=== PATIENT | female | born 1970 | race Caucasian/White ===

== ENCOUNTER → 2018-05-11 08:41 | Outpatient (CLI) | payer OTHER, SELFPAY ==
[2018-05-11 08:53] LABS: Basophils % 0.5 % (0.1-2.0); Eosinophils % 0.9 % (0.1-12.0); Hematocrit 40.2 % (37.0-47.0); Hemoglobin 13.1 g/dL (12.2-16.2); Lymphocytes # 1.3 K/mm3 (0.7-4.5); Mean Corpuscular HGB Conc 32.5 g/dL (31.8-35.4); Mean Corpuscular Hemoglobin 30.8 pg (27.0-31.2); Mean Corpuscular Volume 94.7 fl (81-99); Mean Platelet Volume 7.6 fl (7.4-10.4); Monocytes # 0.2 K/mm3 (0.1-1.0); Neutrophils # 1.2 K/mm3 (1.8-7.8); Neutrophils % 42.6 % (37.0-80.0); Platelet Count 227 K/mm3 (142-424); Red Blood Count 4.25 M/mm3 (4.20-5.40); Red Cell Distribution Width 12.8 % (11.5-17.5); White Blood Count 2.8 K/mm3 (4.8-10.8)
[2018-05-11 11:19] LABS: Alanine Aminotransferase 29 U/L (12-78); Albumin Level 3.4 gm/dL (3.4-5.0); Alkaline Phosphatase 96 U/L (46-116); Anion Gap 10.7 mEq/L (5-15); Aspartate Amino Transferase 19 U/L (15-37); Bilirubin,Total 0.6 mg/dL (0.2-1.0); Blood Urea Nitrogen 13 mg/dL (7-18); Calcium 8.6 mg/dL (8.5-10.1); Carbon Dioxide 31 mmol/L (21.0-32.0); Chloride 105 mmol/L (98-107); Chol/HDL Ratio 3.1 (1-3.5); Cholesterol 173 mg/dL (140-200); Creatinine,Serum 0.77 mg/dL (0.55-1.02); Estimated Glomerular Filt Rate 80 ml/min (>60); GFR (African American) 96 ML/MIN (>60); Globulin 3.3 gm/dl (1.3-3.2); Glucose 93 mg/dL (74-106); HDL Cholesterol 55 mg/dL (29-89); LDL Cholesterol 99 mg/dL (0-130); Potassium 4.7 mmoL/L (3.5-5.1); Sodium 142 mmol/L (136-145); Thyroid Stimulating Hormone 2.41 uIU/ml (0.358-3.740); Total Protein,Serum 6.7 gm/dL (6.4-8.2); Triglycerides 96 mg/dL (30-200); Triiodothryronine (T3) Uptake 34 % (31-39); VLDL Cholesterol 19 mg/dL (0-40)
[2018-05-13 11:17] LABS: Vitamin B12 498 pg/mL (232-1245)
[2018-05-14 09:58] LABS: Antinuclear Antibodies, IFA Positive (.)
== END ==
PROVIDERS: Visit Provider Internal Medicine Adolescent Medicine
DX: R10.84 Generalized abdominal pain (principal); M25.50 Pain in unspecified joint; Z87.19 Personal history of other diseases of the digestive system
CPT/HCPCS: 36415; 80053; 80061; 82607; 84436; 84443; 84479; 85025; 86038

== ENCOUNTER → 2018-10-11 11:45 | Outpatient (CLI) | payer OTHER, SELFPAY ==
--- NOTE | 2018-10-11 12:13 | XR_ITS ---
EXAM: XR thoracic spine 3V HISTORY: ITS.REASON: THORACIC PAIN Comparison: None FINDINGS: Normal alignment. There are mild degenerative changes lower thoracic spine. All pedicles are intact. There is no paraspinal mass. IMPRESSION: Mild degenerative change lower thoracic spine no other abnormality noted
[2018-10-11 12:36] LABS: Basophils % 0.6 % (0.1-2.0); Eosinophils % 0.4 % (0.1-12.0); Hematocrit 39.8 % (37.0-47.0); Hemoglobin 13.4 g/dL (12.2-16.2); Lymphocytes # 1.3 K/mm3 (0.7-4.5); Lymphocytes % 19.9 % (10-50); Mean Corpuscular HGB Conc 33.7 g/dL (31.8-35.4); Mean Corpuscular Hemoglobin 30.8 pg (27.0-31.2); Mean Corpuscular Volume 91.6 fl (81-99); Mean Platelet Volume 7.1 fl (7.4-10.4); Monocytes # 0.2 K/mm3 (0.1-1.0); Monocytes % 3.5 % (1.7-9.3); Neutrophils # 5.1 K/mm3 (1.8-7.8); Neutrophils % 75.5 % (37.0-80.0); Platelet Count 351 K/mm3 (142-424); Red Blood Count 4.35 M/mm3 (4.20-5.40); Red Cell Distribution Width 13.4 % (11.5-17.5); White Blood Count 6.7 K/mm3 (4.8-10.8)
[2018-10-11 13:48] LABS: Alanine Aminotransferase 32 U/L (12-78); Alkaline Phosphatase 107 U/L (46-116); Anion Gap 12.3 mEq/L (5-15); Aspartate Amino Transferase 25 U/L (15-37); Bilirubin,Total 0.5 mg/dL (0.2-1.0); Blood Urea Nitrogen 13 mg/dL (7-18); Calcium 9.3 mg/dL (8.5-10.1); Carbon Dioxide 28 mmol/L (21.0-32.0); Chloride 104 mmol/L (98-107); Creatinine,Serum 0.78 mg/dL (0.55-1.02); Estimated Glomerular Filt Rate 78 ml/min (>60); Free Thyroxine Index 1.9 ug/dL (5.93-13.13); GFR (African American) 95 ML/MIN (>60); Globulin 3.9 gm/dl (1.3-3.2); Glucose 94 mg/dL (74-106); Magnesium 1.8 mg/dL (1.4-2.2); Potassium 4.3 mmoL/L (3.5-5.1); Sodium 140 mmol/L (136-145); T4 (Thyroxine) 6.6 ug/dl (4.7-13.3); Thyroid Stimulating Hormone 1.78 uIU/ml (0.358-3.740); Total Protein,Serum 7.9 gm/dL (6.4-8.2); Triiodothryronine (T3) Uptake 29 % (31-39)
[2018-10-12 19:09] LABS: Vitamin B12 445 pg/mL (232-1245)
== END ==
PROVIDERS: PCP Internal Medicine Adolescent Medicine; Visit Provider Internal Medicine Adolescent Medicine
DX: R25.2 Cramp and spasm (principal); M54.6 Pain in thoracic spine
CPT/HCPCS: 36415; 72072; 80053; 82607; 82652; 83735; 84436; 84443; 84479; 85025

== ENCOUNTER 2018-12-20 08:30 | Outpatient (RCR) | payer OTHER, SELFPAY ==
--- NOTE | 2018-10-29 10:23 | HMH.PTOPEV ---
PT Outpatient Evaluation Rehab PT Outpatient Evaluation Start: 10/29/18 09:54 Freq: Status: Active Protocol: Document 10/29/18 09:54 JEFFERYHAN (Rec: 10/29/18 10:23 DORINDA [id number]) Electronically Signed By Mason Gross, PT 10/29/18 09:54 Outpatient Therapy Subjective History Subjective History Patient is a 48 year old female presenting to outpatient PT with reports of L sided interscapular pain of insidious onset starting approximatley 1 month ago. No specific mechanism of injury to report. 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 Signs and symptoms consistent with poor postural awareness. Pt reports symptoms in mid thoracic spine as heavy. She report previously having relief from chiropracitc care. Comorbidities inclue Hx of OA. Pt gives no report of previous cardiovascular issues . Chief Complaint Pain,Stiff Symptom Type Dull Symptoms Relieved By Heat Symptoms Aggravated By Physical Activity Prior Functional Limitations None Current Functional Limitations Reaching,Lifting,Housework, Desk Work/Reading Level of pain today (0-10) 3 Pain scale - at its best (0-10) 1 Pain scale - at its worst (0-10) 6 Cervical Eval Posture Head/C-Spine Posture Sitting Position Neutral Position Flexibility Deficits Upper Trapezius Muscle Length (R) Moderate Tightness,(L) Moderate Tightness Pectoralis Major Muscle Length (R) Moderate Tightness,(L) Moderate Tightness Pectoralis Minor Muscle Length (R) Moderate Tightness,(L) Moderate Tightness Passive Joint Mobility Cervical PIVM Dec: R C2/3 L C2/3 R C3/4 L C3/4 R C4/5 L C4/5 R C5/6 L C5/6 R C6/7 L C6/7
== END 2018-12-20 08:35 | disposition home or self-care (01) ==
LOC: PT 08:30
PROVIDERS: Visit Provider Internal Medicine Adolescent Medicine
DX: M54.6 Pain in thoracic spine (principal); R25.2 Cramp and spasm
CPT/HCPCS: 97010; 97014; 97110; 97140; 97163; G0283

== ENCOUNTER → 2019-02-03 14:17 | Outpatient (CLI) | payer OTHER, SELFPAY ==
--- NOTE | 2019-02-03 14:21 | XR_ITS ---
XR ankle LT min 3V HISTORY: ITS.REASON: ACUTE LT ANKLE PAIN ORDERING PHYSICIAN: Venkat Gu MD PATIENT AGE: 49 years Comparison: None FINDINGS: No fracture or dislocation. No lytic or blastic change. There is normal mineralization.. The joint spaces are well-preserved. No significant degenerative/arthritic changes. No erosive changes evident. IMPRESSION: Negative ankle, no acute finding
== END ==
PROVIDERS: PCP Internal Medicine Adolescent Medicine; Visit Provider Internal Medicine Adolescent Medicine
DX: M25.572 Pain in left ankle and joints of left foot (principal)
CPT/HCPCS: 73610

== ENCOUNTER 2019-03-26 10:30 | Outpatient (RCR) | payer OTHER, SELFPAY ==
--- NOTE | 2019-02-06 11:44 | HMH.PTOPEV ---
PT Outpatient Evaluation Rehab PT Outpatient Evaluation Start: 02/06/19 11:25 Freq: Status: Active Protocol: Document 02/06/19 11:25 DORINDA (Rec: 02/06/19 11:43 DORINDA [id number]) Electronically Signed By Masno Gross, PT 02/06/19 11:25 Outpatient Therapy Subjective History Subjective History Pt is a 49 year old female presenting to outpatient PT with reports of L sided cervical spine pain with LUE radicular symptoms starting approximately 1 week ago. Pain is insidious in nature. Pt reports hx of chronic thoracic pain resolved with PT . Comorbidities include hx of hysterectomy. Chief Complaint Pain,Paresthesia Symptom Type Ache,Sharp,Numbness,Tingling Symptoms Relieved By Rest/Positioning Symptoms Aggravated By Physical Activity,Lifting Prior Functional Limitations None Current Functional Limitations Reaching,Lifting,Housework, Recreation Activity Symptom Description Intermittent Level of pain today (0-10) 1 Pain scale - at its best (0-10) 0 Pain scale - at its worst (0-10) 9 Cervical Eval Palpation Cervical Muscles L CT Junction,L Upper Trapezius,L Thoracic Paraspinals Flexibility Deficits Upper Trapezius Muscle Length (R) Moderate Tightness,(L) Moderate Tightness Levaetor Scapulae Muscle Length (R) Moderate Tightness,(L) Moderate Tightness Scalene Group Muscle Length (R) Moderate Tightness,(L) Moderate Tightness Pectoralis Major Muscle Length (R) Moderate Tightness,(L) Moderate Tightness Pectoralis Minor Muscle Length (R) Moderate Tightness,(L) Moderate Tightness Passive Joint Mobility Cervical PIVM WNL: R OA L OA R AA L AA R C2/3 L C2/3 R C3/4 L C3/4 R C4/5 L C4/5 R C5/6 L C5/6 R C6/7 L C6/7 R C7/T1
--- NOTE | 2019-03-20 17:40 | HMH.RHREAS ---
Rehab Reassessment Rehab OP Re-assessment Start: 03/20/19 17:09 Freq: Status: Active Protocol: Document 03/20/19 17:10 DORINDA (Rec: 03/20/19 17:39 DORINDA [id number]) Electronically Signed By Mason Gross, PT 03/20/19 17:10 Rehab Re-assessment Subjective Subjective Pt reports 30-40% improvement since start of care. Objective Objective Notes AROM: WFL MMT: WFL Neuro: DTR's WFL, Pt continues to reports intermittent radicular symptoms to L anterior elbow. Special tests: + spurlings. Assessment Progress Assessment Slower Than Expected Assessment Notes Patient is showing some improvements, but progressing slowly. She continues to have intermittent exacerbations with increased activity levels . PT educated to allow some lifestyle modification during this period. Her symptoms continue to result in functional limtations with all houshold, driving and work related activites. She would benefit from continuing skilled PT services. Patient goals met STG's Goals Not Met LTG's Revised Goals NA Plan Plan Continue with POC. Frequency of Therapy 2x/week Duration of therapy 4 weeks Time and Billing Re-Eval Time 15 Re-Eval Billing Units 1 PHYSICIAN CERTIFICATION: I certify the specified therapy services for Leroy Allen are required, authorized, and reviewed every 30 days.
== END 2019-03-26 10:35 | disposition home or self-care (01) ==
LOC: PT 10:30
PROVIDERS: PCP Internal Medicine Adolescent Medicine; Visit Provider Internal Medicine Adolescent Medicine
DX: M54.12 Radiculopathy, cervical region (principal); M12.812 Other specific arthropathies, not elsewhere classified, left shoulder
CPT/HCPCS: 97010; 97012; 97014; 97110; 97140; 97163; 97164; G0283

== ENCOUNTER → 2019-05-15 13:47 | Outpatient (CLI) | payer OTHER, SELFPAY ==
--- NOTE | 2019-05-15 13:49 | MR_ITS ---
PROCEDURE: MR SHOULDER LT WO CON CLINICAL INDICATION: ROTATOR CUFF ARTHROPATHY Left shoulder pain with limited range of motion COMPARISON: No exams were available for comparison TECHNIQUE: Routine multiplanar multi echo sequences are performed without gadolinium enhancement. FINDINGS: There are mild hypertrophic changes of the acromioclavicular joint with some edematous changes at the AC joint.. There is subacromial stenosis with mild impingement upon the supraspinatus tendon. No evidence rotator cuff tear. There is slight increased T2 signal of the supraspinatus tendon distally consistent with tendinopathy/tendinosis. The infraspinatus tendon, subscapularis tendon, teres minor tendons are intact. No labral tear apparent. Bicipital tendon is in place. There is some minimal subarticular cystic change of the humeral head. IMPRESSION: Acromioclavicular arthropathy with hypertrophy and mild impingement upon the supraspinatus tendon with tendinopathy/tendinosis of the supraspinatus tendon. Mild degenerative changes of the humeral head. No evidence of rotator cuff tear Dictated by: Caden Oneil MD 05/16/2019 09:02 Electronically signed by Caden Oneil MD in [place] 05/16/2019 09:02
== END ==
PROVIDERS: PCP Internal Medicine Adolescent Medicine; Visit Provider Internal Medicine Adolescent Medicine
DX: M12.812 Other specific arthropathies, not elsewhere classified, left shoulder (principal)
CPT/HCPCS: 73221

== ENCOUNTER → 2019-06-12 08:30 | Outpatient (CLI) | payer OTHER, SELFPAY ==
--- NOTE | 2019-06-12 08:40 | XR_ITS ---
PROCEDURE: XR SHOULDER LT MIN 2V CLINICAL INDICATION: left shoulder pain COMPARISON: MR SHOULDER LT WO CON from 05/15/2019 FINDINGS: The clavicle is intact. There is minor spurring of the AC joint superiorly. The humeral head and glenoid appear normal and there no soft tissue calcifications. IMPRESSION: Minor degenerate spurring of the AC joint superiorly otherwise negative left shoulder Dictated by: Dr. Clifton Carter MD 06/12/2019 09:[address] Clifton Carter MD in [place] 06/12/2019 09:52
== END ==
PROVIDERS: PCP Internal Medicine Adolescent Medicine; Visit Provider Orthopaedic Surgery
DX: M25.512 Pain in left shoulder (principal)
CPT/HCPCS: 73030

== ENCOUNTER → 2019-07-28 14:52 | Outpatient (CLI) | payer OTHER, SELFPAY ==
--- NOTE | 2019-07-28 14:58 | US_ITS ---
PROCEDURE: US BREAST RT COMPLETE CLINICAL INDICATION: CELLULITIS OF RT BREAST COMPARISON: No exams were available for comparison FINDINGS: There is a small subcutaneous area of decreased echogenicity in the right breast at 3 o'clock measuring 5 mm by 8 mm. This may represent an area of inflammation. No other significant anomalies are evident. IMPRESSION: Small hypoechoic area in the 3 o'clock region of the right breast which is subcutaneous and may represent a small area of inflammation/infection Dictated by: Caden Oneil MD 08/05/2019 15:33 Electronically signed by Caden Oneil MD in [place] 08/05/2019 15:33
== END ==
PROVIDERS: PCP Internal Medicine Adolescent Medicine; Visit Provider Nurse Practitioner Family
DX: N61.0 Mastitis without abscess (principal)
CPT/HCPCS: 76641

== ENCOUNTER 2019-08-19 15:00 | Outpatient (RCR) | payer OTHER, SELFPAY ==
--- NOTE | 2019-06-27 10:06 | HMH.OTOPEV ---
OT Inpatient Evaluation Rehab OT Outpatient Eval Start: 06/27/19 09:39 Freq: Status: Active Protocol: Document 06/27/19 09:40 TFRY (Rec: 06/27/19 10:06 TFRY [id number]) Electronically Signed By Jesi West OT 06/27/19 09:40 Outpatient Therapy Subjective History Subjective History This is a 49 year old right handed female referred to occupational therapy for left shoulder rotator cuff tendinopathy and bicep tendiopathy. Patient reports that she has had pain in her shoulder for months. Reports that she had injections prior to . She reports initially that had relief but then pain returned. Chief Complaint Pain Symptom Type Sharp,Stabbing Symptoms Relieved By Rest/Positioning,Prescription Meds Symptoms Aggravated By Physical Activity Prior Functional Limitations None Current Functional Limitations Reaching,Lifting,Housework, Dressing,Sleeping Symptom Description Constant but Variable Level of pain today (0-10) 5 Pain scale - at its best (0-10) 0 Pain scale - at its worst (0-10) 10 Shoulder/Elbow Eval Shoulder Objective Measurements Palpation Tenderness tenderness shoulder exam standard left tenderness over the bicipital tendon left shoulder exam standard Shoulder Palpation Findings Tenderness Shoulder ROM Left Shoulder ROM Limitations Pain Shoulder Abduction Active Range of WFL Motion (degrees) Shoulder Abduction Passive Range of WFL Motion (degrees) Shoulder Flexion Active Range of Motion WFL (degrees) Query Text: Shoulder Flexion Passive Range of Motion WFL (degrees) Shoulder External Rotation Active Range WFL of Motion (degrees) Shoulder External Rotation Passive Range WFL of Motion (degrees) Shoulder Internal Rotation Active Range WFL of Motion (degrees) Shoulder Internal Rotation Passive Range WFL of Motion (degrees) Shoulder Extension Active Range of WFL Motion (degrees) Shoulder Extension Passive Range of WFL Motion (degrees) pain with active ROM shoulder exam left standard pain with passive ROM shoulder exam left standard full ROM shoulder exam standard left Shoulder MMT Shoulder Abduction Strength Grade 4- Good-
--- NOTE | 2019-07-29 10:41 | HMH.RHREAS ---
Rehab Reassessment Rehab OP Re-assessment Start: 07/29/19 09:57 Freq: Status: Active Protocol: Document 07/29/19 09:57 RMRANULFOHALL (Rec: 07/29/19 10:41 RMARSHALL [id number]) Electronically Signed By Kelsey Segura OT 07/29/19 09:57 Rehab Re-assessment Subjective Subjective I am still having pain and its moving down my arm. Objective Objective Notes Pt continues to be seen twice a week in order to address all left shoulder deficits. Each time patient engages in left shoulder AROM/AAROM/ Strengthening exercises. Pt also receives modalities such as e-stim and ionto to decrease pain/inflammation at the left shoulder. Assessment Progress Assessment Slower Than Expected Assessment Notes Pt is continuing to have significant pain in the left shoulder that is now referring down into the bicep area. Pt also demonstrates with limited range of motion in internal rotation due to pain. Minimal improvement has been made. Therapist informed patient to schedule another appointment with ortho in order to be re-evaluated by therapist. Current AROM/MMT L shoulder Flex: 160 degrees, 4 Abd: 160 degrees, 4- ER: 90 degrees, 4- IR: 50 degrees, 3 Pt reports minimal pain with flex, abd, and ER. However pt has significant pain when trying to move arm in interal rotation. 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 Plan Plan Continue with OT plan of care. Frequency of T
== END 2019-08-19 15:05 | disposition home or self-care (01) ==
LOC: OT 15:00
PROVIDERS: PCP Internal Medicine Adolescent Medicine; Visit Provider Orthopaedic Surgery
DX: M75.52 Bursitis of left shoulder (principal); M75.42 Impingement syndrome of left shoulder; M75.22 Bicipital tendinitis, left shoulder; M67.912 Unspecified disorder of synovium and tendon, left shoulder
CPT/HCPCS: 97014; 97033; 97110; 97164; G0283

== ENCOUNTER → 2019-10-13 11:04 | Outpatient (CLI) | payer OTHER, SELFPAY ==
[2019-10-13 11:36] LABS: Basophils % 0.6 % (0.1-2.0); Eosinophils # 0.1 K/mm3 (0.0-0.4); Eosinophils % 1.4 % (0.1-12.0); Hematocrit 39.4 % (37.0-47.0); Lymphocytes # 1.4 K/mm3 (0.7-4.5); Lymphocytes % 22.7 % (10-50); Mean Corpuscular HGB Conc 33.1 g/dL (31.8-35.4); Mean Corpuscular Hemoglobin 30.8 pg (27.0-31.2); Mean Corpuscular Volume 93.2 fl (81-99); Mean Platelet Volume 7.8 fl (7.4-10.4); Monocytes # 0.2 K/mm3 (0.1-1.0); Monocytes % 3.9 % (1.7-9.3); Neutrophils # 4.5 K/mm3 (1.8-7.8); Neutrophils % 71.3 % (37.0-80.0); Platelet Count 265 K/mm3 (142-424); Red Blood Count 4.23 M/mm3 (4.20-5.40); Red Cell Distribution Width 12.8 % (11.5-17.5); White Blood Count 6.3 K/mm3 (4.8-10.8)
[2019-10-13 12:06] LABS: Erythrocyte Sedimentation Rate 89 mm/hr (0-20)
[2019-10-13 12:23] LABS: Alanine Aminotransferase 27 U/L (12-78); Albumin/Globulin Ratio 1.4 (1.1-1.8); Alkaline Phosphatase 106 U/L (38-126); Anion Gap 10.5 mEq/L (5-15); Aspartate Amino Transferase 43 U/L (14-36); Bilirubin,Total 1.1 mg/dl (0.2-1.3); Blood Urea Nitrogen 11 mg/dl (7-17); Calcium 9.7 mg/dl (8.4-10.2); Carbon Dioxide 30 mmol/L (22.0-30.0); Chloride 101 mmol/L (98-107); Estimated Glomerular Filt Rate 89 ml/min (>60); GFR (African American) 107 ML/MIN (>60); Globulin 2.9 g/dL (1.3-3.2); Glucose 93 mg/dl (74-100); Potassium 4.5 mmoL/L (3.5-5.1); Sodium 137 mmol/L (136-145); Total Protein,Serum 6.9 g/dl (6.3-8.2)
== END ==
PROVIDERS: Visit Provider Internal Medicine Adolescent Medicine
DX: R10.30 Lower abdominal pain, unspecified (principal)
CPT/HCPCS: 36415; 80053; 85025; 85651

== ENCOUNTER 2019-11-19 09:36 | Emergency (ER) | payer OTHER, SELFPAY ==
[2019-11-19 09:44] VITALS: BP 108/82; PULSE 88; RESP 16; TEMP 36.6; O2SAT 98; BMI 31.1
[2019-11-19 09:49] VITALS: BMI 34.7
--- NOTE | 2019-11-19 09:50 | XR_ITS ---
PROCEDURE: XR FINGER RT MIN 2V CLINICAL INDICATION: smashed finger Posttraumatic pain COMPARISON: No exams were available for comparison FINDINGS: On the lateral view there is a faint curvilinear lucency along the dorsal and distal aspect of the middle phalanx suggesting a nondisplaced fracture. The joint spaces are well-preserved. No significant degenerative/arthritic changes. No erosive changes evident. Other findings:None. IMPRESSION: Nondisplaced fracture distal and dorsal aspect of the middle phalanx. This is age indeterminate. This may be old as there was reported to be no injury or tenderness in this area. Clinical correlation is required Dictated by: Caden Oneil MD 11/19/2019 10:26 Electronically signed by Caden Oneil MD in [place] 11/19/2019 10:26
--- NOTE | 2019-11-19 09:56 | HMH.EDGENADL ---
ED Disposition Clinical Impression: Contusion of right ring finger Qualifiers: Encounter type: initial encounter Damage to nail status: without damage Qualified Code(s): S60.041A - Contusion of right ring finger without damage to nail, initial encounter Disposition: Home, Self-Care Condition on Discharge: Good Instructions: DI for Contusion Additional Instructions: Ice and elevate to reduce swelling and bruising. Tylenol for pain. Wear fingertip splint as needed for protection. Follow-up with primary care provider if not improving in 3 to 4 days. Referrals: Venkat Gu MD [Primary Care Provider] - - Critical Care Critical Care Time: No Attestation: On , the high probability of a clinically significant, sudden or life threatening deterioration of the following system(s) required my full and direct attention, intervention and personal management. The time I documented below is in addition to time spent performing reported procedures but includes the following listed in this critical care notation. Medical Decision Making - Jean-Pierre Inquiry Pt receiving controlled substance: No Vital Signs: 11/19/19 09:44 11/19/19 10:35 Temperature 98 F 98 F Temperature Source Oral Oral Pulse Rate 78 Pulse Rate [Left Radial] 88 Respiratory Rate 16 16 Blood Pressure 121/78 Blood Pressure [Right Arm] 108/82 L Blood Pressure Mean [Right Arm] 90 Blood Pressure Position Sitting Blood Pressure Position [Right Arm] Sitting 02 Sat by Pulse Oximetry 98 Oxygen Delivery Method Room Air Room Air - Radiology Data #1 Image(s): Finger(s)/Thumb Image Reviewed: Yes I reviewed the patient's radiology image Slight irregularity to the cortex of the dorsal distal portion of the middle phalanx of the ring finger. This is likely degenerative as the patient has no injury or tenderness in this area. Medical Decision Narrative: I do not recommend incising and draining the fingertip, I think this would increase the risk of infection and damage to stabilizing ligaments of the pulp. Recommended ice and elevation for reducing the swelling and bruising. I discussed the patient's x-ray finding of an irregular cortex dorsal distal middle phalanx. On exam, the patient has no tenderness whatsoever in this area, she does not have any bruising or swelling in that area. There is no deformity or decreased range of motion. Bruising and swelling and tenderness is limited to the pulp of the finger pad only. I advised of the finding on x-ray, but it appears that this is likely old or degenerative. Patient will be placed in a splint and follow-up. General Adult HPI - General Chief complaint: PAIN Stated complaint: [id number] right hand ring finger swollen Time Seen by Provider: 11/19/19 09:56 Mode of Arrival: Ambulatory Limitations: No Limitations Description of Symptoms (Recalled from ER Triage Doc. by RN): to ed per pvt car with c/o pain rt ring finger pt states smashed it lastnight bruising noted to finger. - History of Present Illness HPI narrative: The patient smashed the tip of her right ring finger last night with a water jug. She has bruising and swelling of the finger pad of the distal phalanx. She says that Dr. Nguyễn thought that she should have it looked at, she wonders whether she needs it lanced to keep from getting a hematoma. - Related Data Home Medications Medication Instructions Recorded Confirmed Sertraline HCl [Zoloft 100mg 100 mg PO DAILY 05/08/18 08/07/19 tablet] ropinirole 1 mg tablet 1 mg PO QHS 06/12/19 08/07/19 Allergies Allergy/AdvReac Type Severity Reaction Status Date / Time promethazine [From Phenergan] Allergy Verified 08/07/19 09:58 [facility] History - Hepatitis A Screen Drug use history?: No High risk sexual behaviors?: No History of sexually transmitted infection?: No Currently employed?: No Childcare worker?: No Do you have indoor plumbing?: Yes Do you have electricity?
--- NOTE | 2019-11-19 10:33 | PC.NURSE ---
FINGER TIP SPLINT APPLIED PRIOR TO DISCHARGE
[2019-11-19 10:35] VITALS: BP 121/78; PULSE 78; RESP 16; TEMP 36.6; O2SAT 98
== END 2019-11-19 10:37 | disposition home or self-care (01) ==
PROVIDERS: Emergency Provider Emergency Medicine; PCP Internal Medicine Adolescent Medicine
DX: S60.041A Contusion of right ring finger without damage to nail, initial encounter (principal); W22.8XXA Striking against or struck by other objects, initial encounter; Y92.019 Unspecified place in single-family (private) house as the place of occurrence of the external cause; K21.9 Gastro-esophageal reflux disease without esophagitis; F41.9 Anxiety disorder, unspecified; Z90.79 Acquired absence of other genital organ(s); Z79.899 Other long term (current) drug therapy
CPT/HCPCS: 73140; 99283

== ENCOUNTER → 2019-11-20 12:50 | Outpatient (CLI) | payer OTHER, SELFPAY ==
[2019-11-20 13:33] LABS: Erythrocyte Sedimentation Rate 45 mm/hr (0-20)
[2019-11-20 15:11] LABS: Chloride 104 mmol/L (98-107); Sodium 139 mmol/L (136-145)
[2019-11-20 15:12] LABS: Potassium 4.7 mmoL/L (3.5-5.1)
[2019-11-20 15:14] LABS: Alanine Aminotransferase 23 U/L (12-78); Albumin Level 4.1 g/dl (3.5-5.0); Albumin/Globulin Ratio 1.5 (1.1-1.8); Alkaline Phosphatase 117 U/L (38-126); Anion Gap 9.7 mEq/L (5-15); Aspartate Amino Transferase 37 U/L (14-36); Bilirubin,Total 0.8 mg/dl (0.2-1.3); Blood Urea Nitrogen 11 mg/dl (7-17); Carbon Dioxide 30 mmol/L (22.0-30.0); Estimated Glomerular Filt Rate 76 ml/min (>60); GFR (African American) 92 ML/MIN (>60); Globulin 2.7 g/dL (1.3-3.2); Total Protein,Serum 6.8 g/dl (6.3-8.2)
[2019-11-20 15:15] LABS: Calcium 9.8 mg/dl (8.4-10.2); Glucose 84 mg/dl (74-100)
[2019-11-20 15:20] LABS: C-Reactive Protein 3.2 mg/L (0-4)
[2019-11-21 12:09] LABS: Anti-Centromere B Antibodies <0.2 AI (0.0-0.9); Anti-Jo-1 <0.2 AI (0.0-0.9); Anti-Smith Antibody <0.2 AI (0.0-0.9); Antichromatin Antibodies <0.2 AI (0.0-0.9); Antiscleroderma-70 Antibodies <0.2 AI (0.0-0.9); RNP Antibodies <0.2 AI (0.0-0.9); Sjogren's Anti-SS-A <0.2 AI (0.0-0.9); Sjogren's Anti-SS-B <0.2 AI (0.0-0.9)
[2019-11-21 20:32] LABS: Anti-DNA (DS) Ab Qn <1 IU/mL (0-9); RA Latex Turbid. <10.0 IU/mL (0.0-13.9)
[2019-11-22 11:12] LABS: Anti-Cyclic Citrullinated Pept 4 units (0-19)
== END ==
PROVIDERS: Visit Provider Internal Medicine Adolescent Medicine
DX: M19.90 Unspecified osteoarthritis, unspecified site (principal)
CPT/HCPCS: 36415; 80053; 85651; 86140; 86200; 86225; 86235; 86431

== ENCOUNTER → 2019-12-03 14:07 | Outpatient (CLI) | payer OTHER, SELFPAY ==
--- NOTE | 2019-12-03 14:12 | XR_ITS ---
PROCEDURE: XR WRIST RT MIN 3V CLINICAL INDICATION: right wrist pain COMPARISON: XR WRIST LT MIN 3V from 12/03/2019 FINDINGS: No fracture or dislocation. No lytic or blastic change. There is normal mineralization. The joint spaces are well-preserved. No significant degenerative/arthritic changes. No erosive changes evident. Other findings:None. IMPRESSION: No acute findings. Dictated by: Caden Oneil MD 12/03/2019 14:28 Electronically signed by Caden Oneil MD in [place] 12/03/2019 14:28
--- NOTE | 2019-12-03 14:12 | XR_ITS ---
PROCEDURE: XR FINGER RT MIN 2V CLINICAL INDICATION: right ring finger fu Pain following injury, follow-up fracture COMPARISON: XR FINGER RT MIN 2V from 11/19/2019 FINDINGS: Previously noted lucency along the distal and dorsal aspect of the middle phalanx of the 4th digit is not apparent on today's image in may have been due to artifact. There is however, a nondisplaced fracture involving the tuft of the distal phalanx which is now present not readily apparent previously The joint spaces are well-preserved. No significant degenerative/arthritic changes. No erosive changes evident. Other findings:None. IMPRESSION: Nondisplaced tuft fracture of the distal phalanx of the 4th digit Dictated by: Caden Oneil MD 12/03/2019 14:27 Electronically signed by Caden Oneil MD in [place] 12/03/2019 14:27
--- NOTE | 2019-12-03 14:12 | XR_ITS ---
PROCEDURE: XR WRIST LT MIN 3V CLINICAL INDICATION: left wrist pain COMPARISON: No exams were available for comparison FINDINGS: No fracture or dislocation. No lytic or blastic change. There is normal mineralization. The joint spaces are well-preserved. No significant degenerative/arthritic changes. No erosive changes evident. Other findings:None. IMPRESSION: No acute findings. Dictated by: Caden Oneil MD 12/03/2019 14:25 Electronically signed by Caden Oneil MD in [place] 12/03/2019 14:25
== END ==
PROVIDERS: PCP Internal Medicine Adolescent Medicine; Visit Provider Orthopaedic Surgery
DX: M25.531 Pain in right wrist (principal); S60.041A Contusion of right ring finger without damage to nail, initial encounter; M25.532 Pain in left wrist
CPT/HCPCS: 73110; 73140

== ENCOUNTER → 2019-12-23 12:53 | Outpatient (CLI) | payer OTHER, SELFPAY ==
--- NOTE | 2019-12-23 13:01 | XR_ITS ---
PROCEDURE: XR FOOT RT MIN 3V CLINICAL INDICATION: RT FOOT PAIN Pain and swelling COMPARISON: No exams were available for comparison FINDINGS: No fracture or dislocation. No lytic or blastic change. There is normal mineralization. The joint spaces are well-preserved. No significant degenerative/arthritic changes. No erosive changes evident. Other findings:None. IMPRESSION: No acute findings. Dictated by: Caden Oneil MD 12/23/2019 14:03 Electronically signed by Caden Oneil MD in [place] 12/23/2019 14:03
== END ==
PROVIDERS: PCP Internal Medicine Adolescent Medicine; Visit Provider Internal Medicine Adolescent Medicine
DX: M79.671 Pain in right foot (principal)
CPT/HCPCS: 73630

== ENCOUNTER → 2019-12-28 19:37 | Outpatient (CLI) | payer OTHER, SELFPAY ==
--- NOTE | 2019-12-28 19:45 | XR_ITS ---
PROCEDURE: XR HIP RT 2-3V W/PELVIS CLINICAL INDICATION: FALL WITH PAIN COMPARISON: No exams were available for comparison FINDINGS: No fracture or dislocation is evident. No significant degenerative change. No lytic or blastic change. Unremarkable soft tissues. There is mild hyperostotic change along the greater trochanter posteriorly IMPRESSION: No acute findings. Dictated by: Caden Oneil MD 12/29/2019 08:12 Electronically signed by Caden Oneil MD in [place] 12/29/2019 08:12
== END ==
PROVIDERS: PCP Internal Medicine Adolescent Medicine; Visit Provider Orthopaedic Surgery
DX: M25.551 Pain in right hip (principal)
CPT/HCPCS: 73502

== ENCOUNTER 2019-12-29 10:52 | Outpatient (RCR) | payer OTHER, SELFPAY ==
--- NOTE | 2019-12-29 13:21 | HMH.OTOPEV ---
OT Inpatient Evaluation Rehab OT Outpatient Eval Start: 12/29/19 13:11 Freq: Status: Active Protocol: Document 12/29/19 13:11 RMMONTEZ (Rec: 12/29/19 13:21 [id number] Electronically Signed By Kelsey Segura OT 12/29/19 13:11 Outpatient Therapy Subjective History Subjective History Pt is a 49 year old female who reports to outpatient evaluation to left shoulder. Pt was seen previously by OT, ~4 months ago for left shoulder pain. Pt had to stop therapy due to COVID-19 pandemic. Pt explains her shoulder began hurting her ~1 year ago, but she does not recall a specific injury causing the pain. Pt has had 3 injections in the shoulder and her most recent one was at the beginning of November. Pt reports her pain has improved since she has had the injections; however the pain has always returned after a few weeks. Pt does demonstrate with minimal decreased AROM and strength. 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 Pt will continue to be seen weekly in order to address all deficits. Chief Complaint Pain,Weakness Symptom Type Ache,Throb,Sharp,Dull,Stabbing ,Shooting Symptoms Relieved By Nothing Symptoms Aggravated By Physical Activity,Lifting Prior Functional Limitations None Current Functional Limitations Reaching,Lifting,Housework, Dressing,Driving,Sleeping, Recreation Activity Symptom Description Intermittent,Activity Dependent Level of pain today (0-10) 0 Pain scale - at its best (0-10) 0 Pain scale - at its worst (0-10) 10 Shoulder/Elbow Eval Shoulder Objective Measurements Shoulder ROM Left Shoulder ROM Limitations Muscle Weakness,Pain Shoulder Abduction Active Range of 140 degrees Motion (degrees) Shoulder Flexion Active Range of Motion 135 degrees (degrees) Query Text: Shoulder External Rotation Active Range 75 degrees of Motion (de
== END 2019-12-29 10:55 | disposition home or self-care (01) ==
LOC: OT 10:52
PROVIDERS: PCP Internal Medicine Adolescent Medicine; Visit Provider Orthopaedic Surgery
DX: M25.512 Pain in left shoulder (principal); M75.52 Bursitis of left shoulder; M75.42 Impingement syndrome of left shoulder; M67.912 Unspecified disorder of synovium and tendon, left shoulder
CPT/HCPCS: 97014; 97110; 97165; G0283

== ENCOUNTER 2020-03-01 16:23 | Emergency (ER) | payer OTHER, SELFPAY ==
[2020-03-01 17:14] VITALS: BP 127/58; PULSE 75; RESP 20; TEMP 36.7; O2SAT 97; BMI 34.9
[2020-03-01 17:33] LABS: UTC Influenza A Antigen Negative (Negative); UTC Strep Screen (Rapid) Negative (Negative)
[2020-03-01 17:34] LABS: UTC Influenza B Antigen Negative (Negative)
--- NOTE | 2020-03-01 17:39 | HMH.EDUTC ---
[facility] [place] Clinical Impression: Viral syndrome Acute bronchitis Qualifiers: Bronchitis organism: unspecified organism Qualified Code(s): J20.9 - Acute bronchitis, unspecified Disposition: Home, Self-Care Condition on Discharge: Good Instructions: DI for Viral Syndrome, Preventing the Spread of Coronavirus Discharge Instructions Additional Instructions: Drink plenty of fluids. Take tylenol or ibuprofen for pain or fever. Take the medications as directed. Follow up with your regular doctor. GO TO THE ER FOR ANY WORSENING SYMPTOMS FOLLOW THE DIRECTIONS ON THE COVID-19 HAND OUT THAT WE GAVE YOU REGARDING SELF-ISOLATION UNTIL YOU KNOW YOUR COVID-19 RESULTS Prescriptions: Benzonatate [Tessalon Perle 100mg Cap] 100 mg PO TIDP PRN #30 cap PRN Reason: Cough Transmission Status: Received by [id number] Azithromycin [Z-Vineet 250mg Tab*] 250 mg PO UD DOSE PK #6 tab Transmission Status: Received by [id number] Referrals: Venkat Gu MD [Primary Care Provider] - Forms: Work/School Release Time of Disposition: 17:46 Medical Decision Making - Medical Records Medical records reviewed: No: I reviewed the patient's medical records. - Jean-Pierre Inquiry Pt receiving controlled substance: No Vital Signs: 03/01/20 17:14 03/01/20 18:00 Temperature 98.1 F 98.1 F Temperature Source Oral Pulse Rate 75 Pulse Rate [Right Brachial] 75 Respiratory Rate 20 20 Blood Pressure 127/58 L Blood Pressure [Right Arm] 127/58 L Blood Pressure Mean [Right Arm] 81 Blood Pressure Source [Right Arm] Automatic Cuff Blood Pressure Position [Right Arm] Sitting 02 Sat by Pulse Oximetry 97 Oxygen Delivery Method Room Air - Lab Data Lab results reviewed: Yes: I reviewed the patient's lab results. Lab Results 03/01/20 17:12: Influenza Type A Ag Negative, Influenza Type B Ag Negative 03/01/20 17:12: Strep Scn Rapid Clinic Negative Orders (Tests/Meds): ORDERS Category Date Time Status Covid-19 Nasal PCR Sendout [facility] Stat Lab 03/01/20 17:25 Received Strep Screen Confirmation Stat Micro 03/01/20 17:12 Received [facility] [place] HPI - General Stated complaint: COUGH,JULIO Time Seen by Provider: 03/01/20 17:39 Mode of Arrival: Ambulatory Source of Information: Patient Limitations: No Limitations Description of Symptoms (Recalled from Triage Doc. by RN): PATIENT C/O FATIGUE, HEADACHE, DRY COUGH, BONE PAIN, LOSS OF SMELL, AND WEAKNESS SINCE SUNDAY HEENT Symptoms (Recalled from RN notes): No Resp Symptoms (Recalled from RN notes): No Skin Symptoms (Recalled from RN notes): No MS Symptoms (Recalled from RN notes): No Functional Status (Recalled from RN notes): WNL - History of Present Illness Provider Complaint: She states that over the past 4 days, she has began to feel very bad, have body aches, cough that interferes with sleep, and she has lost her sense of smell. 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 - Related Data Home Medications Medication Instructions Recorded Confirmed Sertraline HCl [Zoloft 100mg 100 mg PO DAILY 05/08/18 12/03/19 tablet] ropinirole 1 mg tablet 1 mg PO QHS 06/12/19 12/03/19 trazodone 50 mg tablet 50 mg PO tab 12/03/19 12/03/19 Previous Rx's Medication Instructions Recorded Azithromycin [Z-Vineet 250mg Tab*] 250 mg PO UD DOSE PK #6 tab 03/01/20 Benzonatate [Tessalon Perle 100mg 100 mg PO TIDP PRN #30 cap 03/01/20 Cap] Allergies Allergy/AdvReac Type Severity Reaction Status Date / Time promethazine [From Phenergan] Allergy Verified 12/03/19 13:14 - Worker's Comp Is this a Worker's Comp case?: No [facility] History - Hepatitis A Screen Drug use history?: No High risk sexual behaviors?: No History of sexually transmitted infection?: No Currently employed?: No Childcare worker?: No Do you have indoor plumbing?: Yes Do you have electricity?: Yes Attestation statement:: This patient has been screened for Hepatit
[2020-03-01 18:00] VITALS: BP 127/58; PULSE 75; RESP 20; TEMP 36.7; O2SAT 97
[2020-03-03 08:04] LABS: Covid-19 Nasal PCR Sendout Lex NOT DETECTED
== END 2020-03-01 18:02 | disposition home or self-care (01) ==
PROVIDERS: Emergency Provider Nurse Practitioner Family; PCP Internal Medicine Adolescent Medicine
DX: B34.9 Viral infection, unspecified (principal); J20.9 Acute bronchitis, unspecified; Z20.828 Contact with and (suspected) exposure to other viral communicable diseases; F41.9 Anxiety disorder, unspecified; K21.9 Gastro-esophageal reflux disease without esophagitis; Z79.899 Other long term (current) drug therapy; Z88.8 Allergy status to other drugs, medicaments and biological substances
CPT/HCPCS: 87804; 87880; 99202; U0004

== ENCOUNTER → 2020-04-15 12:09 | Outpatient (CLI) | payer OTHER, SELFPAY | PROVIDERS: PCP Internal Medicine Adolescent Medicine; Visit Provider Physician Assistant | DX: R00.2 Palpitations (principal); R06.00 Dyspnea, unspecified; R42 Dizziness and giddiness; K21.9 Gastro-esophageal reflux disease without esophagitis | CPT/HCPCS: 93270 ==

== ENCOUNTER → 2020-04-22 08:19 | Outpatient (CLI) | payer OTHER, SELFPAY ==
--- NOTE | 2020-04-22 | CA_ITS ---
APPROVED REPORT Exam: Exercise Treadmill Technologist: Paradise Benitez, Ht: 5 ft 8 in Wt: 232 lbs BSA: 2.18 m2 HR: 79 bpm BP: 130/73 mmHg Rhythm: NSR,NORMAL Medical History Medications: Trazadone,,,,, Sertaline,,,,, Ropinerole,,,,, Duexis,,,,, Allergies: PROMETHAZINE Stress Test Details Test: Manual Treadmill HR Resting HR: 79 bpm Max Heart Rate (APMHR): 169 bpm Max HR Achieved: 159 bpm Target HR (85% APMHR): 143 bpm % of APMHR: 94 Recovery HR: 80 bpm BP Resting BP: 130.0/73.0 mmHg Max BP: 156.0/76.0 mmHg Recovery BP: 146.0/40.0 mmHg ECG Resting ECG: NSR,NORMAL Clinical Exercise duration: 06:44 min Highest Stage Achieved: Exercise capacity: 7.0 METs Stress ECG Conclusion EXERCISED 6:44 ON ALLAN PROTOCOL WITH MAX HEART RATE 159 BPM WHICH IS 94% OF PM FOR AGE. MAX BP 156/76. METS = 7.0. TEST STOPPED DUE TO SOA AND FATIGUE. MILD BURNING CP. NO ARRHYTHMIAS/ECTOPY. NORMAL ST RESPONSE TO EXERCISE. NORMAL GXT. STRESS ECHO IMAGES REPORTED SEPARATELY. Test Summary REST . . . . . . . Standing REST . . . . . . . Standing REST . . . . . . . Sitting REST 10:16 0.0 0.0 79 . 130/ 73 . . Stage 1 01:00 10.0 1.7 109 . . . . Stage 1 02:00 10.0 1.7 128 . . . . Stage 1 03:00 10.0 1.7 131 . 144/ 80 . . Stage 2 01:00 12.0 2.5 142 . . . . Stage 2 02:00 12.0 2.5 152 . . . . Stage 2 03:00 12.0 2.5 152 . 156/ 76 . . Stage 3 00:44 14.0 0.0 159 . . . Stop exercise at 06:44 RECOVERY . . . . . . . Protocol changed to Manual Treadmill RECOVERY 01:00 0.0 0.0 109 . . . . RECOVERY 02:00 0.0 0.0 83 . 146/ 40 . . RECOVERY 03:00 0.0 0.0 79 . 146/ 40 . . RECOVERY 04:00 0.0 0.0 77 . 146/ 40 . . RECOVERY 05:00 0.0 0.0 79 . 119/ 62 . . RECOVERY 06:00 0.0 0.0 76 . 119/ 62 . . RECOVERY 06:38 0.0 0.0 84 . 115/ 71 . . Electronically signed by : Antione Bajwa, 04/22/2020 14:52:31
--- NOTE | 2020-04-22 08:19 | CT_ITS ---
PROCEDURE: CT CHEST WO CON CLINICAL INDICATION: dyspnea dyspnea x 1-2 months has on heart monitor no prior COMPARISON: No exams were available for comparison TECHNIQUE: Axial images obtained with sagittal and coronal reformats. All CT scans at the facility use one or more dose reduction, viz: automated exposure control, ma/kV adjustment per patient size (including targeted exams where dose is matched to indication, i.e. head), or iterative reconstruction technique. FINDINGS: HEART AND MEDIASTINAL STRUCTURES: No mediastinal or hilar mass or adenopathy. There is minimal thickening of the pericardium. LUNGS AND PLEURAL SPACES: Unremarkable. BONY STRUCTURES: No acute bony abnormalities apparent. UPPER ABDOMEN: Unremarkable. ADDITIONAL FINDINGS: No other significant abnormalities. IMPRESSION: No acute finding Minimal pericardial thickening at 5 mm anteriorly of questionable clinical significance Dictated by: Caden Oneil MD 04/26/2020 06:07 Caden Oneil MD in [place] 04/26/2020 06:07
--- NOTE | 2020-04-22 08:37 | CA_ITS ---
APPROVED REPORT EXAM: Comprehensive 2D, Doppler, and color-flow Echocardiogram Meal Temperer: Anne Marie Griffith CRT Ht: 5 ft 8 in Wt: 232lbs BSA: 2.18 BP: 104/73 mmHg Indications: Murmur, Palpitations, Dyspnea, dizziness,, gerd, murmur, 2D Dimensions LVOT 2.05 cm (M/F) 1.5-2.5 M-Mode Dimensions RVDd 3.15 cm (0.9-2.6) LA Diam 3.52 cm (1.9-4.0) LVDd 4.97 cm (3.5-5.7) Ao Diam 3.73 cm (2.0-3.7) LVDs 3.51 cm (3.5-5.7) IVSd 1.36 cm (0.6-1.1) PWd 0.79 cm (0.6-1.1) EF (Teich) 56.10% FS 29.40% EDV (Teich) 116.60 mL ESV (Teich) 51.20 mL LV Diastology E Decel Time 197.00 (160-240 msec) E/A Ratio 0.85 MED E' 8.90 (< 7 cm/sec) E'/MED E' Ratio 7.84 (>14) LAT E' 11.30 (<10 cm/sec) E/LAT E' Ratio 6.18 (>14) Aortic Valve AO Peak GR. 6.00 mmHg Mitral Valve MV A Velocity 82.00 (40-130 cm/s) E/A Ratio 0.85 MV Decel. Time 197.00 (160-240 ms) Pulmonary Valve PV Peak Velocity 68.00 (50-150 cm/s) Tricuspid Valve TR P. Velocity 196.00 cm/s RAP Estimate 10.00 mmHg RVSP 25.40 mmHg Left Ventricle Left atrium is normal size, left ventricle is normal size, there is no concentric left ventricular hypertrophy, visually estimated ejection fraction 55% with no regional wall motion abnormality, Doppler evidence of impaired LV relaxation seen. Right Ventricle Right atrium and right ventricle are normal size and contractility. Aortic Valve Aortic valve is minimally thickened and fibrosed, there is no aortic stenosis or aortic insufficiency. Mitral Valve Mitral valve grossly normal, there is mild mitral regurgitation. Tricuspid Valve Tricuspid valve grossly normal, there is mild tricuspid regurgitation, tricuspid regurgitation jet velocity is inadequate for calculation of the right ventricular systolic pressure. Pulmonic Valve Pulmonic valve is poorly visualized. Great Vessels Aortic root is normal size. Pericardium No significant pericardial effusion noted. Conclusion 1. Normal left ventricular size, preserved left ventricular systolic function, visually estimated ejection fraction 55% with no regional wall motion abnormality, Doppler evidence of impaired LV relaxation seen. 2. Mild mitral and tricuspid regurgitation. 3. No significant pericardial effusion noted. Electronically signed by : Antione Bajwa, 04/22/2020 15:08:01
--- NOTE | 2020-04-22 08:42 | CA_ITS ---
APPROVED REPORT EXAM: Comprehensive 2D, Doppler, and color-flow Echocardiogram Economic History Teacher: Roya Felder RDCS Ht: 5 ft 8 in Wt: 232lbs BSA: 2.18 BP: 105/59 mmHg Indications: SOA STRESS ECHO Conclusion 1. Patient exercised on Bear protocol achieved 7 mets of workload on treadmill, the EKG was negative for ischemia. 2. Normal left ventricular size and function, with no regional wall motion abnormality, with exercise there is increase in contractility of all segments of the myocardium with hyperdynamic left ventricular systolic response, no obvious segmental wall motion abnormality to suggest underlying ischemic heart disease. Electronically signed by : Antione Bajwa, 04/22/2020 15:09:39
== END ==
PROVIDERS: PCP Internal Medicine Adolescent Medicine; Visit Provider Internal Medicine Cardiovascular Disease
DX: R06.00 Dyspnea, unspecified (principal); R42 Dizziness and giddiness; R00.2 Palpitations; K21.9 Gastro-esophageal reflux disease without esophagitis
CPT/HCPCS: 71250; 93017; 93306; 93350

== ENCOUNTER → 2020-05-01 10:44 | Outpatient (CLI) | payer OTHER, SELFPAY ==
[2020-05-01 17:32] LABS: Adenovirus,PCR Not Detected (NotDetected); Bordetella Pertussis Not Detected (NotDetected); Chlamydophila Pneumoniae, PCR Not Detected (NotDetected); Coronavirus 19, PCR Not Detected (NotDetected); Coronavirus 229E Not Detected (NotDetected); Coronavirus NL63 Not Detected (NotDetected); Coronavirus OC43 Not Detected (NotDetected); Coronovirus HKU1,PCR Not Detected (NotDetected); Human Metapneumovirus Not Detected (NotDetected); Influenza A, PCR Not Detected (NotDetected); Influenza AH1, 2009 Not Detected (NotDetected); Influenza AH1, PCR Not Detected (NotDetected); Influenza AH3,PCR Not Detected (NotDetected); Influenza B, PCR Not Detected (NotDetected); Mycoplasma Pneumoniae, PCR Not Detected (NotDetected); Parainfluenza 1, PCR Not Detected (NotDetected); Parainfluenza 2, PCR Not Detected (NotDetected); Parainfluenza 3, PCR Not Detected (NotDetected); Parainfluenza 4, PCR Not Detected (NotDetected); Respiratory Syncytial Virus Not Detected (NotDetected)
[2020-05-01 19:00] LABS: Rhinovirus/Enterovirus Detected (NotDetected)
== END ==
PROVIDERS: PCP Nurse Practitioner Family; Visit Provider Nurse Practitioner Family
DX: Z03.818 Encounter for observation for suspected exposure to other biological agents ruled out (principal); B34.1 Enterovirus infection, unspecified
CPT/HCPCS: 87581; 87633; 87798

== ENCOUNTER → 2020-05-15 10:01 | Outpatient (CLI) | payer OTHER, SELFPAY ==
[2020-05-15 10:23] LABS: D-Dimer 1.04 ug/mL (0.15-8.0)
== END ==
PROVIDERS: Visit Provider Internal Medicine Pulmonary Disease
DX: R06.00 Dyspnea, unspecified (principal); R05 Cough
CPT/HCPCS: 36415; 85378

== ENCOUNTER → 2020-05-25 09:54 | Outpatient (CLI) | payer OTHER, SELFPAY ==
[2020-05-25 10:35] VITALS: PULSE 81; PULSE 84
== END ==
PROVIDERS: PCP Internal Medicine Adolescent Medicine; Visit Provider Internal Medicine Pulmonary Disease
DX: R06.00 Dyspnea, unspecified (principal)
CPT/HCPCS: 94060; 94640; 94726; 94729

== ENCOUNTER → 2020-06-16 15:13 | Outpatient (CLI) | payer OTHER, SELFPAY | PROVIDERS: PCP Internal Medicine Adolescent Medicine; Visit Provider Internal Medicine Cardiovascular Disease | DX: R40.0 Somnolence (principal); R06.83 Snoring; G47.30 Sleep apnea, unspecified | CPT/HCPCS: 95806 ==

== ENCOUNTER → 2020-06-22 13:10 | Outpatient (CLI) | payer OTHER, SELFPAY ==
--- NOTE | 2020-06-22 13:20 | XR_ITS ---
PROCEDURE: XR SHOULDER LT MIN 2V CLINICAL INDICATION: left shoulder pain COMPARISON: No exams were available for comparison FINDINGS: The clavicle is intact and the AC joint appears normal. The humeral head and glenoid appear normal. There are no soft tissue calcifications. There is no subacromial stenosis. IMPRESSION: No acute findings. Dictated by: Dr. Clifton Carter MD 06/22/2020 17:32 Dr. Clifton Carter MD in [place] 06/22/2020 17:32
== END ==
PROVIDERS: PCP Internal Medicine Adolescent Medicine; Visit Provider Orthopaedic Surgery
DX: M25.512 Pain in left shoulder (principal)
CPT/HCPCS: 73030

== ENCOUNTER → 2020-07-16 10:55 | Outpatient (CLI) | payer OTHER, SELFPAY ==
[2020-07-16 14:03] LABS: Chloride 105 mmol/L (98-107); Potassium 4.2 mmoL/L (3.5-5.1); Sodium 139 mmol/L (136-145)
[2020-07-16 14:06] LABS: Blood Urea Nitrogen 18 mg/dl (7-17); Estimated Glomerular Filt Rate 88 ml/min (>60); GFR (African American) 107 ML/MIN (>60)
[2020-07-16 14:07] LABS: Anion Gap 13.2 mEq/L (5-15); Calcium 9.1 mg/dl (8.4-10.2); Carbon Dioxide 25 mmol/L (22.0-30.0); Glucose 139 mg/dl (74-100)
[2020-07-16 14:14] LABS: NT Pro Brain Natriuretic Pep. 41.4 pg/mL (0-125)
== END ==
PROVIDERS: Visit Provider Internal Medicine Cardiovascular Disease
DX: R06.00 Dyspnea, unspecified (principal); R42 Dizziness and giddiness; R00.2 Palpitations; K21.9 Gastro-esophageal reflux disease without esophagitis
CPT/HCPCS: 36415; 80048; 83880

== ENCOUNTER → 2020-07-29 16:13 | Outpatient (CLI) | payer OTHER, SELFPAY ==
--- NOTE | 2020-07-29 16:18 | XR_ITS ---
PROCEDURE: XR SHOULDER RT MIN 2V CLINICAL INDICATION: RT SHOULDER PAIN COMPARISON: CR XR SHOULDER LT MIN 2V from 06/12/2019 CR XR SHOULDER LT MIN 2V from 06/22/2020 FINDINGS: No fracture or dislocation. No lytic or blastic change. There is normal mineralization. The joint spaces are well-preserved. No significant degenerative/arthritic changes. No erosive changes evident. Other findings:None. IMPRESSION: No acute findings. Dictated by: Caden Oneil MD 07/29/2020 16:36 Caden Oneil MD in [place] 07/29/2020 16:36
== END ==
PROVIDERS: PCP Internal Medicine Adolescent Medicine; Visit Provider Internal Medicine Adolescent Medicine
DX: M25.511 Pain in right shoulder (principal)
CPT/HCPCS: 73030

== ENCOUNTER → 2020-08-04 13:19 | Outpatient (CLI) | payer OTHER, SELFPAY ==
--- NOTE | 2020-08-04 14:10 | MR_ITS ---
PROCEDURE: MR SHOULDER RT WO CON CLINICAL INDICATION: RT SHOULDER INJURY WORK PLACE INJURY. RT SHOULDER INJURY WITH LIMITED RANGE OF MOTION. IN MAY INJURED BY PULLING ON PATIENT. ON 07/19 PUSHED PATIENT AND REINJURED ARM. COMPARISON: CR XR SHOULDER RT MIN 2V from 07/29/2020 TECHNIQUE: Routine multiplanar multi echo sequences are performed without gadolinium enhancement. FINDINGS: No evidence of rotator cuff tear. There is some slight increased T2 signal within the supraspinatus tendon distally which may represent some mild tendinopathy/tendinosis. There is a small amount of fluid in the subglenoid region suggesting bursitis. Small septations are present within this fluid collection. The collection measures 1.9 x 0.7 cm. No evidence of rotator cuff tear. The bicipital tendon is in place. There are mild hypertrophic changes of the acromioclavicular joint with a small amount of bony and soft tissue edema at the AC joint. IMPRESSION: 1. No evidence of rotator cuff tear. 2. Mild tendinopathy/tendinosis of the supraspinatus tendon. 3. Acromioclavicular arthropathy. 4. Small septated cystic area inferior to the glenoid suggesting bursitis. Dictated by: Caden Oneil MD 08/06/2020 11:34 Caden Oneil MD in [place] 08/06/2020 11:34
== END ==
PROVIDERS: PCP Internal Medicine Adolescent Medicine; Visit Provider Internal Medicine Adolescent Medicine
DX: M25.511 Pain in right shoulder (principal)
CPT/HCPCS: 73221

== ENCOUNTER → 2020-09-10 12:59 | Outpatient (CLI) | payer OTHER, SELFPAY ==
--- NOTE | 2020-09-10 13:03 | MR_ITS ---
PROCEDURE: MR HEAD/BRAIN WO CON CLINICAL INDICATION: HEADACHE Severe headache COMPARISON: No exams were available for comparison TECHNIQUE: Routine multiplanar multi echo sequences are performed without gadolinium enhancement. FINDINGS: No midline shift, mass effect, intracranial hemorrhage, hydrocephalus, or acute infarction is evident. The cerebellopontine angles, cerebellum, and brainstem have an unremarkable appearance. A few small T2 white matter hyperintensities are present in the frontal lobes nonspecific. No restricted diffusion. The pituitary, optic chiasm, corpus callosum, and craniocervical junction have an unremarkable appearance. No mastoid effusion or sinus air-fluid level. IMPRESSION: 1. No acute intracranial findings. 2. There are few T2 white matter hyperintensities in the frontal lobes. These are nonspecific and may be seen with small ischemic gliotic foci or migraine headache. Demyelinating process felt to be less likely but not totally excluded. Dictated by: Caden Oneil MD 09/12/2020 07:12 Caden Oneil MD in [place] 09/12/2020 07:12
== END ==
PROVIDERS: PCP Internal Medicine Adolescent Medicine; Visit Provider Internal Medicine Adolescent Medicine
DX: G44.59 Other complicated headache syndrome (principal); R42 Dizziness and giddiness
CPT/HCPCS: 70551

== ENCOUNTER → 2020-10-21 15:22 | Outpatient (CLI) | payer OTHER, SELFPAY ==
[2020-10-21 17:11] LABS: Vitamin B12 526 pg/mL (239-931)
== END ==
PROVIDERS: Visit Provider Specialist
DX: G44.85 Primary stabbing headache (principal); R41.3 Other amnesia
CPT/HCPCS: 82607

== ENCOUNTER 2020-10-25 14:00 | Outpatient (RCR) | payer OTHER, SELFPAY ==
--- NOTE | 2020-08-18 11:15 | HMH.OTOPEV ---
OT Inpatient Evaluation Rehab OT Outpatient Eval Start: 08/18/20 10:56 Freq: Status: Active Protocol: Document 08/18/20 10:56 RMARSHALL (Rec: 08/18/20 11:15 [id number] Electronically Signed By Kelsey Segura OT 08/18/20 10:56 Outpatient Therapy Subjective History Subjective History Pt is a 50 year old female who reports to therapy for initial evaluation to right shoulder. Pt reports she initially injured her right shoulder in May 2020 at work. 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 Pt then injured right shoulder again on 2020. Pt was moving a patient from their bed to stretcher and she felt a pop in right shoulder followed by immediate pain. Pt does demonstrate with decreased AROM and strength at right shoulder. Pt is also being seen for Left shoulder deficits. Pt is planning on having surgery on L shoulder due to stenosis of subacromial space. Pt will continue to be seen in order to address bilateral shoulders. Chief Complaint Pain,Stiff,Weakness Symptom Type Ache,Sharp,Shooting Symptoms Relieved By Nothing Symptoms Aggravated By Physical Activity,Lifting Prior Functional Limitations None Current Functional Limitations Reaching,Lifting,Housework, Dressing,Sleeping,Recreation Activity Symptom Description Intermittent,Activity Dependent Level of pain today (0-10) 8 Pain scale - at its best (0-10) 3 Pain scale - at its worst (0-10) 10 Shoulder/Elbow Eval Shoulder Objective Measurements Shoulder ROM Right Shoulder Abduction Active Range of 100 degrees Motion (degrees) Shoulder Flexion Active Range of Motion 125 degrees (degrees) Query Text: Shoulder External Rotation Active Range 45 degrees of Motion (degrees) Shoulder Internal Rotation Active Range 35 degrees of Motion (degrees)
--- NOTE | 2020-09-27 10:04 | HMH.RHREAS ---
Rehab Reassessment Rehab OP Re-assessment Start: 09/27/20 09:09 Freq: Status: Active Protocol: Document 09/27/20 09:09 KATELYNN (Rec: 09/27/20 10:03 KATELYNN [id number]) Electronically Signed By Kelsey Segura OT 09/27/20 09:09 Rehab Re-assessment Subjective Subjective I got a shot in this arm. Objective Objective Notes Pt continues to be seen twice weekly in order to address R shoulder defictis. Each session pt engages in R shoulder AROM/AAROM/ Strengthening exercises to improve mobility and strength of the joint. Pt also receives modalities to right shoulder in order to decrease pain/inflammation for improved use. Assessment Progress Assessment Progressing as Expected Assessment Notes Pt has been inconsistent about attending therapy due to a schedule change at work. She was put on restrictions ~1 week ago by ortho due to continued pain. Her restrictions are no pulling or lifting. She also received a steroid injection in the right shoulder 1 week ago. Pt reports her pain has improved significantly since injection ; she rates her worst pain at a 3-4/10. Current AROM at R shoulder Flex: 135 degrees Abd: 140 degrees ER: 75 degrees IR: 70 degrees Patient goals met [address], 4, & 5 Goals Not Met See below Revised Goals ST & 2 LT-5 Plan Plan Continue with OT plan of care. Frequency of Therapy 2x's a week Duration of therapy 4 more weeks Time and Billing Re-Eval Time 10 Re-Eval Billing Units 1 PHYSICIAN CERTIFICATION: I certify the specified therapy services for Leroy Allen are required, authorized, and reviewed every 30 days.
--- NOTE | 2020-10-25 14:59 | HMH.RHREAS ---
Rehab Reassessment Rehab OP Re-assessment Start: 09/27/20 09:09 Freq: Status: Active Protocol: Document 10/25/20 14:07 KATELYNN (Rec: 10/25/20 14:[address] [id number]) Electronically Signed By Kelsey Segura OT 10/25/20 14:07 Rehab Re-assessment Subjective Subjective I thought I was only gone for 2 weeks. Objective Objective Notes Pt continues to be seen twice weekly in order to address R shoulder defictis. Each session pt engages in R shoulder AROM/AAROM/ Strengthening exercises to improve mobility and strength of the joint. Pt also receives modalities to right shoulder in order to decrease pain/inflammation for improved use. Assessment Progress Assessment Progressing as Expected Assessment Notes Pt has been insonsistent about attending therapy within the past month. Pt had not been seen for ~22 days when she came at the end of last week. Pt had been gone on vactaion. She is still on restrictions at work. Pt reports her right shoulder has improved, but left has become worse. Her restrictions are no pulling or lifting over 15lbs. Pt reports her pain is at a 5/10 at worst. Her pain has increased slightly since last re-assessment. Current AROM at R shoulder Flex: 135 degrees Abd: 140 degrees ER: 85 degrees IR: 80 degrees Patient goals met ST, 3, 4, & 5 LTG 3 & 5 Goals Not Met See below Revised Goals ST LT-5 Plan Plan Continue with OT plan of care. Frequency of Therapy 2x's a week Duration of therapy 4 more weeks Time and Billing Re-Eval Time 10 Re-Eval Billing Units 1 PHYSICIAN CERTIFICATION: I certify the specified therapy service
== END 2020-10-25 14:05 | disposition home or self-care (01) ==
LOC: OT 14:00
PROVIDERS: PCP Internal Medicine Adolescent Medicine; Visit Provider Internal Medicine Adolescent Medicine
DX: M77.8 Other enthesopathies, not elsewhere classified (principal); M25.511 Pain in right shoulder
CPT/HCPCS: 97110; 97164; 97166

== ENCOUNTER 2020-10-25 14:00 | Outpatient (RCR) | payer OTHER, SELFPAY ==
--- NOTE | 2020-07-12 15:38 | HMH.OTOPEV ---
OT Inpatient Evaluation Rehab OT Outpatient Eval Start: 07/12/20 15:21 Freq: Status: Active Protocol: Document 07/12/20 15:22 RMARSHALGerard (Rec: 07/12/20 15:[address] [facility] [id number]) Electronically Signed By Kelsey Segura OT 07/12/20 15:22 Outpatient Therapy Subjective History Subjective History Pt is a 50 year old female who reports to therapy for initial evaluation to L shoulder. Pt has been seen previously by OT for L shoulder issues. She was seen ~1 year ago. She does not recall a specific shoulder injury causing her pain to initially begin. Since last therapy services, she has received 4 steroid injections, the last being on 06/23/20. She reports the last shot only gave her relief for a few weeks. Pt demonstrates with decreased AROM and strength at left shoulder. Pt will continue to be seen twice a week in order to address all left shoulder deficits. Chief Complaint Pain,Weakness Symptom Type Sharp Symptoms Relieved By Rest/Positioning Symptoms Aggravated By Physical Activity,Lifting Prior Functional Limitations None Current Functional Limitations Reaching,Lifting,Housework, Driving,Sleeping,Recreation Activity Symptom Description Intermittent,Activity Dependent Level of pain today (0-10) 0 Pain scale - at its best (0-10) 0 Pain scale - at its worst (0-10) 10 Shoulder/Elbow Eval Shoulder Objective Measurements Shoulder ROM Left Shoulder Abduction Active Range of 95 degrees Motion (degrees) Shoulder Flexion Active Range of Motion 135 degrees (degrees) Query Text: Shoulder External Rotation Active Range 55 degrees of Motion (degrees) Shoulder Internal Rotation Active Range 65 degrees of Motion (degrees) pain with active ROM shoulder exam left standard pain with passive ROM shoulder exam left standard decreased ROM shoulder exam standard left Shoulder MMT Shoulder Abduction Strength Grade 3- Fair- Shoulder Extension Strength Grade 3 Fair Shoulder Flexion Strength Grade 3 Fair
--- NOTE | 2020-08-16 11:48 | HMH.RHREAS ---
Rehab Reassessment Rehab OP Re-assessment Start: 08/11/20 10:40 Freq: Status: Active Protocol: Document 08/16/20 10:58 RMARSHALL (Rec: 08/16/20 11:48 RMARSHALL [id number]) Electronically Signed By Kelsey Segura OT 08/16/20 10:58 Rehab Re-assessment Subjective Subjective I need the right one worked on now. Objective Objective Notes Pt continues to be seen twice weekly in order to address L shoulder defictis. Each session pt engages in L shoulder AROM/AAROM/ Strengthening exercises to improve mobility and strength of the joint. Pt also receives modalities to left shoulder in order to decrease pain/inflammation for improved use. Assessment Progress Assessment Progressing as Expected Assessment Notes Pt reports her pain in the left shoulder still remains around a 7/10 at worst. 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 Pt does not feel at this time she has improved at the left shoulder because her injection has worn off . She has an injection by ortho prior to starting therapy. When beginning therapy she had improved pain/motion and now she is starting to have more pain because it has been over 6 weeks since injection. Pt is also having a therapy evaluation on right shoulder this week due to increased pain in it as well. AROM has improved slightly since beginning therapy. Current AROM Flex: 135 degrees Abd: 115 degrees ER: 75 degrees IR: 60 degrees Patient goals met At this time pt has met both short term and terminal system operator goals of endurance and HEP Goals Not Met See below Revised Goals STG 1,2
--- NOTE | 2020-09-27 09:37 | HMH.RHREAS ---
Rehab Reassessment Rehab OP Re-assessment Start: 08/11/20 10:40 Freq: Status: Active Protocol: Document 09/27/20 09:10 KATELYNN (Rec: 09/27/20 09:37 KATELYNN [id number]) Electronically Signed By Kelsey Segura OT 09/27/20 09:10 Rehab Re-assessment Subjective Subjective It's been better since being put on restrictions. Objective Objective Notes Pt continues to be seen twice weekly in order to address L shoulder defictis. Each session pt engages in L shoulder AROM/AAROM/ Strengthening exercises to improve mobility and strength of the joint. Pt also receives modalities to left shoulder in order to decrease pain/inflammation for improved use. Assessment Progress Assessment Progressing as Expected Assessment Notes Pt reports since she has been put on restrictions from ortho her pain at left shoulder has improved. She still has pain at 7/10 at worst, but it is not as often as before being put on restrictions. Pt is not allowed to lift or push/ pull. These restrictions will last 6 weeks. Current AROM Flex: 120 degrees Abd: 140 degrees ER: 75 degrees IR: 50 degrees Patient goals met At this time pt has met both short term and mcfp goals of endurance and HEP Goals Not Met See below Revised Goals STG 1,2, and 4 LTG 1,2, and 4 Plan Plan Continue with OT plan of care. Frequency of Therapy 2x's a week Duration of therapy 4 more weeks Time and Billing Re-Eval Time 10 Re-Eval Billing Units 1 PHYSICIAN CERTIFICATION: I certify the specified therapy services for Leroy Allen are required, authorized, and reviewed every 30 days.
--- NOTE | 2020-10-25 14:59 | HMH.RHREAS ---
Rehab Reassessment Rehab OP Re-assessment Start: 08/11/20 10:40 Freq: Status: Active Protocol: Document 10/25/20 14:10 KATELYNN (Rec: 10/25/20 14:57 [facility]ANULFOHALL [id number]) Electronically Signed By Kelsey Segura OT 10/25/20 14:10 Rehab Re-assessment Subjective Subjective I thought I was only gone for 2 weeks. Objective Objective Notes Pt continues to be seen twice weekly in order to address L shoulder defictis. Each session pt engages in L shoulder AROM/AAROM/ Strengthening exercises to improve mobility and strength of the joint. Pt also receives modalities to left shoulder in order to decrease pain/inflammation for improved use. Assessment Progress Assessment Slower Than Expected Assessment Notes Pt has been insonsistent about attending therapy within the past month. Pt had not been seen for ~22 days when she came at the end of last week. Pt had been gone on vactaion. She is still on restrictions at work. Pt reports her right shoulder has improved, but left has become worse. Her restrictions are no pulling or lifting over 15lbs. Pt reports her pain is at the left a 9/10 at worst. Her pain has increased significantly since last re- assessment. AROM has declined sinch last re-assessment. Pt attends follow up appointment on with tarik. Current AROM Flex: 130 degrees Abd: 100 degrees ER: 65 degrees IR: 30 degrees (severe pain) Patient goals met STG 3 & 5 LTG 3 & 5 Goals Not Met See below Revised Goals STG 1,2, and 4 LTG 1,2, and 4 Plan Plan Continue with OT plan of care. Frequency of Therapy 2x's a week Duration
== END 2020-10-25 14:05 | disposition home or self-care (01) ==
LOC: OT 14:00
PROVIDERS: PCP Internal Medicine Adolescent Medicine; Visit Provider Orthopaedic Surgery
DX: M75.52 Bursitis of left shoulder (principal); M75.42 Impingement syndrome of left shoulder; M67.912 Unspecified disorder of synovium and tendon, left shoulder; M75.22 Bicipital tendinitis, left shoulder
CPT/HCPCS: 97014; 97035; 97110; 97140; 97164; 97166; G0283

== ENCOUNTER → 2020-12-07 10:06 | Outpatient (CLI) | payer OTHER, SELFPAY ==
[2020-12-07 10:32] LABS: Hemoglobin A1C 5.2 % (4.0-6.0)
== END ==
PROVIDERS: Visit Provider Specialist
DX: E11.9 Type 2 diabetes mellitus without complications (principal)
CPT/HCPCS: 83036

== ENCOUNTER → 2021-01-31 16:48 | Outpatient (CLI) | payer OTHER, SELFPAY ==
[2021-01-31 17:17] LABS: Coronavirus 19, PCR Not Detected (NotDetected); Influenza A, PCR Not Detected (NotDetected); Influenza B, PCR Not Detected (NotDetected)
== END ==
PROVIDERS: PCP Nurse Practitioner Family; Visit Provider Nurse Practitioner Family
DX: Z20.822 Contact with and (suspected) exposure to COVID-19 (principal)
CPT/HCPCS: U0003

== ENCOUNTER → 2021-03-02 19:42 | Outpatient (CLI) | payer OTHER, SELFPAY | PROVIDERS: Visit Provider Physician Assistant | DX: Z20.822 Contact with and (suspected) exposure to COVID-19 (principal); R05 Cough | CPT/HCPCS: U0003 ==

== ENCOUNTER → 2021-03-17 11:49 | Outpatient (CLI) | payer OTHER, SELFPAY ==
[2021-03-17 11:50] LABS: Adenovirus,PCR Not Detected (NotDetected); Coronovirus HKU1,PCR Not Detected (NotDetected)
[2021-03-17 11:51] LABS: Bordetella Pertussis Not Detected (NotDetected); Chlamydophila Pneumoniae, PCR Not Detected (NotDetected); Coronavirus 19, PCR Not Detected (NotDetected); Coronavirus 229E Not Detected (NotDetected); Coronavirus NL63 Not Detected (NotDetected); Coronavirus OC43 Not Detected (NotDetected); Human Metapneumovirus Not Detected (NotDetected); Influenza A, PCR Not Detected (NotDetected); Influenza AH1, 2009 Not Detected (NotDetected); Influenza AH1, PCR Not Detected (NotDetected); Influenza AH3,PCR Not Detected (NotDetected); Influenza B, PCR Not Detected (NotDetected); Mycoplasma Pneumoniae, PCR Not Detected (NotDetected); Parainfluenza 1, PCR Not Detected (NotDetected); Parainfluenza 2, PCR Not Detected (NotDetected); Parainfluenza 3, PCR Not Detected (NotDetected); Parainfluenza 4, PCR Not Detected (NotDetected); Respiratory Syncytial Virus Not Detected (NotDetected); Rhinovirus/Enterovirus Not Detected (NotDetected)
== END ==
PROVIDERS: Visit Provider Nurse Practitioner Family
DX: Z20.822 Contact with and (suspected) exposure to COVID-19 (principal); R53.82 Chronic fatigue, unspecified
CPT/HCPCS: 87486; 87581; 87632; 87798; C9803; U0003; U0005

== ENCOUNTER → 2021-04-12 07:51 | Outpatient (CLI) | payer OTHER, SELFPAY ==
--- NOTE | 2021-04-12 07:52 | MM_ITS ---
PROCEDURE: MM DIG SCREENING MAMM BI W/CAD Digital Breast Tomosynthesis Included CLINICAL INDICATION: screening There is no personal or family history of breast cancer. COMPARISON: No exams were available for comparison TECHNIQUE: Standard CC and MLO images and 3D Tomosynthesis was obtained. R2 CAD reviewed. FINDINGS: The breasts are composed primarily of fat with minimal scattered fibroglandular densities in each breast. There is no suspicious lesion in either breast and no suspicious microcalcifications. IMPRESSION: Fatty type breast parenchyma with no suspicious lesions seen BI-RAD Category: 1 Negative FOLLOW-UP: 1YR 1 Year Follow-up (A letter has been sent to the patient regarding results of the study.) Dictated by: Dr. Clifton Carter MD 04/19/2021 12:16 Dr. Clifton Carter MD in [place] 04/19/2021 12:16
== END ==
PROVIDERS: PCP Nurse Practitioner Family; Visit Provider Nurse Practitioner Family
DX: Z12.31 Encounter for screening mammogram for malignant neoplasm of breast (principal)
CPT/HCPCS: 77063; 77067

== ENCOUNTER → 2021-04-18 13:17 | Outpatient (CLI) | payer OTHER, SELFPAY | PROVIDERS: Visit Provider Nurse Practitioner Family | DX: R10.9 Unspecified abdominal pain (principal) | CPT/HCPCS: 87086 ==

== ENCOUNTER → 2021-05-10 07:53 | Outpatient (POV) | payer OTHER, SELFPAY | PROVIDERS: Visit Provider Dermatology | DX: Z00.00 Encounter for general adult medical examination without abnormal findings (principal) ==

== ENCOUNTER → 2021-05-10 16:55 | Outpatient (CLI) | payer OTHER, SELFPAY ==
[2021-05-10 16:58] LABS: Adenovirus,PCR Not Detected (NotDetected); Bordetella Pertussis Not Detected (NotDetected); Chlamydophila Pneumoniae, PCR Not Detected (NotDetected); Coronavirus 19, PCR Not Detected (NotDetected); Coronavirus 229E Not Detected (NotDetected); Coronavirus NL63 Not Detected (NotDetected); Coronavirus OC43 Not Detected (NotDetected); Coronovirus HKU1,PCR Not Detected (NotDetected); Human Metapneumovirus Not Detected (NotDetected); Influenza A, PCR Not Detected (NotDetected); Influenza AH1, 2009 Not Detected (NotDetected); Influenza AH1, PCR Not Detected (NotDetected); Influenza AH3,PCR Not Detected (NotDetected); Influenza B, PCR Not Detected (NotDetected); Mycoplasma Pneumoniae, PCR Not Detected (NotDetected); Parainfluenza 1, PCR Not Detected (NotDetected); Parainfluenza 2, PCR Not Detected (NotDetected); Parainfluenza 3, PCR Not Detected (NotDetected); Parainfluenza 4, PCR Not Detected (NotDetected); Respiratory Syncytial Virus Not Detected (NotDetected); Rhinovirus/Enterovirus Not Detected (NotDetected)
== END ==
PROVIDERS: Visit Provider Nurse Practitioner Family
DX: Z20.822 Contact with and (suspected) exposure to COVID-19 (principal); J34.2 Deviated nasal septum
CPT/HCPCS: 87581; 87632; 87798; C9803; U0003; U0005

== ENCOUNTER 2021-06-15 06:26 | Day surgery (SDC) | payer OTHER, SELFPAY ==
[2021-06-10 13:19] VITALS: BMI 36.0
[2021-06-15] VITALS (10 sets, daily range): BP systolic 111–131; BP diastolic 65–81; PULSE 75–103; RESP 12–18; TEMP 36.1–36.6; O2SAT 93–100
[2021-06-15 06:42] LABS: Coronavirus 19, PCR Not Detected (NotDetected); Influenza A, PCR Not Detected (NotDetected); Influenza B, PCR Not Detected (NotDetected)
[2021-06-15 06:55] LABS: Basophils % 0.7 % (0.1-2.0); Eosinophils # 0.2 K/mm3 (0.0-0.4); Eosinophils % 3.2 % (0.1-12.0); Hematocrit 37.5 % (37.0-47.0); Hemoglobin 12.5 g/dL (12.2-16.2); Lymphocytes # 2.3 K/mm3 (0.7-4.5); Lymphocytes % 47.6 % (10-50); Mean Corpuscular HGB Conc 33.5 g/dL (31.8-35.4); Mean Corpuscular Hemoglobin 31.3 pg (27.0-31.2); Mean Corpuscular Volume 93.6 fl (81-99); Mean Platelet Volume 7.2 fl (7.4-10.4); Monocytes # 0.3 K/mm3 (0.1-1.0); Monocytes % 5.3 % (1.7-9.3); Neutrophils # 2.1 K/mm3 (1.8-7.8); Neutrophils % 43.1 % (37.0-80.0); Platelet Count 315 K/mm3 (142-424); Red Cell Distribution Width 12.9 % (11.5-17.5); White Blood Count 4.9 K/mm3 (4.8-10.8)
[2021-06-15 07:02] LABS: Chloride 106 mmol/L (98-107); Potassium 3.4 mmoL/L (3.5-5.1); Sodium 141 mmol/L (136-145)
[2021-06-15 07:05] LABS: Alanine Aminotransferase 21 U/L (12-78); Albumin Level 3.9 g/dl (3.5-5.0); Albumin/Globulin Ratio 1.4 (1.1-1.8); Alkaline Phosphatase 92 U/L (38-126); Anion Gap 7.4 mEq/L (5-15); Aspartate Amino Transferase 32 U/L (14-36); Bilirubin,Total 0.5 mg/dl (0.2-1.3); Blood Urea Nitrogen 7 mg/dl (7-17); Calcium 8.7 mg/dl (8.4-10.2); Carbon Dioxide 31 mmol/L (22.0-30.0); Creatinine Clearance Estimated 140 mL/min (50-200); Estimated Glomerular Filt Rate 75 ml/min (>60); GFR (African American) 91 ML/MIN (>60); Globulin 2.7 g/dL (1.3-3.2); Glucose 97 mg/dl (74-100); Total Protein,Serum 6.6 g/dl (6.3-8.2)
--- NOTE | 2021-06-15 08:04 | ECG_ITS ---
APPROVED REPORT Exam: Resting ECG HR:76 bpm ECG Measurements Heart Rate 76 AXES ND 184 P 45 QRSd 88 QRS -10 QT 404 T 34 QTc 454 Conclusion Normal sinus rhythm Normal ECG Electronically signed by : Venkat Gu MD 06/15/2021 20:34:30
--- NOTE | 2021-06-15 08:48 | P.PN_ITS ---
[facility] Anesthesia Checklist - Patient Identification Patient Identification: Arm Band, Verbal (Name & ) - Structural Data Admitted From: Home Planned Operative Procedure/s: Septum Repair Consent for Planned Operative Procedure(s) Verified: Yes Verified Documents: Surgical Consent - NPO Status Verified Time NPO: 00:00 - Chart Verification Results Verified: CBC, BMP - Additional verifications Anesthesia Reactions: No Hx Blood Transfusions: No Blood Transfusion Reaction: No - Cardiovascular Assessment Heart Sounds: S1 & S2 - Airway Assessment C-Spine Mobility Assessed: Yes TMJ Mobility Assessed: Yes Dentition: Good Dentition - Neurological Assessment Level of Consciousness: Awake, Alert, Appropriate - Anesthesia Plan ASA Class: II Anesthesia Type: General [facility] History I have reviewed the patient's past medical history: Yes Medical History: Reports:: Anxiety, Depression, Gastroesophageal Reflux Disease(GERD), Heart Murmur, Palpitations Denies:: Cancer, Diabetes Mellitus Type 1, Diabetes Mellitus Type 2, Hypertension, Internal Pacemaker, Lung Disease, MRSA, Seizures *Have you ever received a pneumonia vaccine?: No *Have you received a flu vaccine this season?: Yes Other Medical History: Denies: Blood Transfusion Reaction Anesthesia experience/problems:: none Other Surgeries: Yes: No Previous Surgery, Colonoscopy, Hysterectomy-Partial. No: Pacemaker Amputation: No Fractures: No - *Social History Last grade of school completed: Advanced degree Smoking Status: Never smoker Alcohol Intake: current Alcohol Intake Frequency:: holidays/special occasions only Substance Use Type: denies use *Occupational Status:: employed Housing: house Household Members: spouse *Travel in the last 8 weeks: None - Psychiatric History Pschychiatric History:: Reports:: Anxiety, Depression Family Hx:: No significant family history
--- NOTE | 2021-06-15 11:13 | P.OP_ITS ---
Date of procedure: 06/15/21 Pre-op Diagnosis:: Deviated septum, turbinate hypertrophy Post-op Diagnosis:: Deviated septum, turbinate hypertrophy Procedure performed:: Septoplasty, submucous resection of the inferior turbinates bilaterally Surgeon:: Kirk Lundberg MD [employer] OPERATOR:: Dru Curran Anesthesia: GETA Estimated blood loss (mL): 100 Operative findings:: Severely deviated septum anteriorly to the right and posteriorly to the left, turbinate hypertrophy bilaterally Operative note:: Patient was brought to the operating room and after adequate general anesthesia the nose was draped in the usual sterile fashion and 1% lidocaine with epinephrine used to locally infiltrate the septum and inferior turbinates. A right hemitransfixion incision was made and mucosal flaps elevated off the bony and cartilaginous septum bilaterally. The caudal septum was severely bent to the left and a vertical fracture was made and the caudal end of the septum was then relocated over the nasal spine and between the medial crura. The remainder of the cartilaginous septum was then mobilized and brought back over the midline maxillary crest. A large vomer spur was resected as was a deviated portion of the perpendicular plate of the ethmoid. The mucoperichondrial flaps were then returned to anatomic position and held in place with a 5-0 plain gut horizontal mattress suture. The hemitransfixion incision was closed with 4-0 chromic. Attention was then drawn to the inferior turbinates. Using a 0 degree sinus endoscope the turbinates were visualized and then using a microdebrider and 2 mm turbinate blade submucosal resection of the redundant soft tissue of the turbinates was performed with the microdebrider through an anterior stab incision. This was done bilaterally. Merisel splints were then placed in the inferior meatuses bilaterally and they were coated with mupirocin ointment and inflated with saline. Procedure concluded. All counts correct. Blood loss was about 100 mL. Patient was sent to recovery in same condition. Condition: stable Disposition: PACU Complications:: None
--- NOTE | 2021-06-15 11:16 | HMH.ANESI ---
[facility] Anesthesia Record Part I Intake, IV Amount: 1,500 Estimated blood loss (mL): 10 Urine output (mL): 0 Blood Pressure: 122/69 SaO2: 98 Pulse Rate: 97 Respiratory Rate: 16 Temperature: 97 F Patient is:: Drowsy, Stable Stable to PACU at:: 11:10
--- NOTE | 2021-06-15 11:56 | SUR.PHASEI ---
1151- detailed report given to pedro wray in post op. pt left in stable condition.
[2021-06-16 07:38] VITALS: BP 130/81; PULSE 88; TEMP 36.4
--- NOTE | 2021-06-16 07:38 | P.PN_ITS ---
[facility] Anesthesia Record Part II Discharge Time: 11:50 Destination: Surgical Day Care (OP Surgery) PACU nurse assessment reviewed?: Yes Patient Condition:: Good Anesthesia Complications:: None Swallowing reflex intact?: Yes Cyanosis?: No Blood Pressure: 130/81 Pulse Rate: 88 Temperature: 97.5 F Mental Status: Alert & Oriented Pain level:: 0 Nausea and/or vomitting:: None Intake, IV Amount: 0
== END 2021-06-15 12:54 | disposition home or self-care (01) ==
LOC: OR 06:29
PROVIDERS: PCP Internal Medicine Adolescent Medicine; Visit Provider Otolaryngology
PROC: (CPT 30520; principal; 2021-06-15 09:00)
DX: J34.2 Deviated nasal septum (principal); J34.3 Hypertrophy of nasal turbinates; F41.9 Anxiety disorder, unspecified; F32.A Depression, unspecified; K21.9 Gastro-esophageal reflux disease without esophagitis; R01.1 Cardiac murmur, unspecified; R00.2 Palpitations; Z88.8 Allergy status to other drugs, medicaments and biological substances; Z79.899 Other long term (current) drug therapy
CPT/HCPCS: 30520; 30140; 36415; 80053; 85025; 93005; 96374; C9803; J2405; J2710; U0003; U0005

== ENCOUNTER → 2021-07-04 16:33 | Outpatient (CLI) | payer OTHER, SELFPAY ==
[2021-07-04 17:01] LABS: Coronavirus 19, PCR Not Detected (NotDetected); Influenza A, PCR Not Detected (NotDetected); Influenza B, PCR Not Detected (NotDetected)
== END ==
PROVIDERS: Visit Provider Nurse Practitioner
DX: Z20.822 Contact with and (suspected) exposure to COVID-19 (principal)
CPT/HCPCS: C9803; U0003; U0005

== ENCOUNTER → 2021-07-20 17:41 | Outpatient (CLI) | payer OTHER, SELFPAY | PROVIDERS: Visit Provider Nurse Practitioner Family | DX: R35.0 Frequency of micturition (principal) | CPT/HCPCS: 87086 ==